=== PATIENT | female | born 1985 | race African-American/Black ===

== ENCOUNTER 2017-03-12 14:25 | Emergency (ER) | payer SELFPAY ==
[~2017-03-12] VITALS: Ht 175.3 cm; Wt 171.0 kg
[~2017-03-12 14:25] MED LIST: CYCL-36 PO; NAPR500 PO
[2017-03-12 14:28] VITALS: BP 167/126; PULSE 76; RESP 16; TEMP 98.3; O2SAT 99
[2017-03-12 14:50] VITALS: BP 135/85
--- NOTE | 2017-03-12 15:15 | PD ---
HPI Chief Complaint: ENT Complaint Time Seen by Provider: 14:50 Travel History International Travel<30 days: No Contact w/Intl Traveler<30days: No Traveled to known affect area: No History of Present Illness HPI 31-year-old female presents emergency department for evaluation of sore throat, nasal congestion, cough for 3 days. Symptoms severity is mild. No aggravating or alleviating factors. She is not tried any home medications. She denies fever or chills. She reports her symptoms are similar to previous cold. She denies headache, visual changes, chest pain, nausea or vomiting. PFSH Past Medical History Medical History: Denies Significant Hx Diminished Hearing: No Influenza Vaccination: No ?: Not LMP: 01/30/17 : 2 Para: 0 Miscarriage: 1 : 0 Past Surgical History Surgical History: No Previous Surgery Social History Alcohol Use: No Tobacco Use: No Substance Use: No Allergies-Medications (Allergen,Severity, Reaction): Coded Allergies: Lortab (Verified Adverse Reaction, Mild, 03/12/17) VOMITING Reported Meds & Prescriptions Reported Meds & Active Scripts Active Naprosyn (Naproxen) 500 Mg Tab 500 Mg PO BID PRN Flexeril (Cyclobenzaprine HCl) 10 Mg Tab 10 Mg PO TID PRN Do not drive on medication. Do not take with alcohol. Review of Systems Except as stated in HPI: all other systems reviewed are Neg Physical Exam Narrative GENERAL: Well-nourished, well-developed patient. SKIN: Focused skin assessment warm/dry. HEAD: Normocephalic. EYES: No scleral icterus. No injection or drainage. NECK: Supple, trachea midline. No JVD or lymphadenopathy. Mild pharyngeal erythema and tonsillar swelling without exudate. Nasal congestion. Clear Rhinitis. Frontal maxillary sinuses nontender. CARDIOVASCULAR: Regular rate and rhythm without murmurs, gallops, or rubs. RESPIRATORY: Breath sounds equal bilaterally. No accessory muscle use. GASTROINTESTINAL: Abdomen soft, non-tender, nondistended. MUSCULOSKELETAL: No cyanosis, or edema. BACK: Nontender without obvious deformity. No CVA tenderness. Data Data Last Documented VS Vital Signs Date Time Temp Pulse Resp B/P Pulse Ox O2 Delivery O2 Flow Rate FiO2 03/12/17 14:50 135/85 03/12/17 14:28 98.3 76 16 99 MDM Medical Decision Making Medical Screen Exam Complete: Yes Emergency Medical Condition: Yes Differential Diagnosis Viral pharyngitis, URI, influenza, strep pharyngitis Narrative Course 31-year-old female since emergency department for evaluation of sore throat, nasal congestion, cough for 3 days. Physical exam are consistent with viral upper respiratory infection. Symptoms are mild. Patient instructed to take Motrin and/or Tylenol as needed for pain and fever. Increase fluids. Rest. Diagnosis Primary Impression: URI (upper respiratory infection) Qualified Code: J06.9 - Viral upper respiratory tract infection Referrals: Primary Care Physician Additional Instructions: Take [id number] Tylenol and/or Motrin as needed for pain and fever. Stay well hydrated by drinking plenty of fluids. Rest. Take [id number] cough and cold medications as needed for symptoms. Disposition: 01 DISCHARGE HOME Condition: Stable Yamel Wynn Mar 12, 2017 15:15
== END 2017-03-12 15:20 | disposition home or self-care (01) ==
LOC: PHEFT 14:25
DX: J06.9 Acute upper respiratory infection, unspecified (principal)
CPT/HCPCS: 99282

== ENCOUNTER → 2017-09-16 | Outpatient (CLI) | payer OTHER ==
[~2017-09-16] MED LIST changes: +ALBU6.7H INH; -CYCL-36 PO; -NAPR500 PO; +ORSYTAB PO
[2017-09-16 13:23] LABS: AUTOMATED NEUTROPHIL # 4.8 TH/MM3 (1.8-7.7); BASOPHIL # 0.1 TH/MM3 (0-0.2); BASOPHIL % 0.7 % (0.0-2.0); EOSINOPHIL # 0.1 TH/MM3 (0-0.4); EOSINOPHIL % 0.6 % (0.0-4.0); HEMO FLAGS DIFF FINAL; LYMPH % 31.8 % (9.0-44.0); LYMPHOCYTE # 2.5 TH/MM3 (1.0-4.8); MEAN CELL VOLUME 82.1 FL (80.0-100.0); MEAN CORPUSCULAR HEMOGLOBIN 26.6 PG (27.0-34.0); MEAN CORPUSCULAR HGB CONC 32.4 % (32.0-36.0); MONO % 6.7 % (0.0-8.0); NEUT % 60.2 % (16.0-70.0); PLATELET COUNT 428 TH/MM3 (150-450); RED BLOOD COUNT 4.14 MIL/MM3 (4.00-5.30); RED CELL DISTRIBUTION WIDTH 14.5 % (11.6-17.2)
[2017-09-16 14:04] LABS: ALT (GPT) 20 U/L (10-53); ANION GAP 9 MEQ/L (5-15); AST (GOT) 9 U/L (15-37); BLOOD UREA NITROGEN 8 MG/DL (7-18); CHLORIDE 108 MEQ/L (98-107); GLOMERULAR FILTRATION RATE 122 ML/MIN (>89); GLUCOSE,FASTING 75 MG/DL (74-99); POTASSIUM 3.9 MEQ/L (3.5-5.1); SODIUM (NA) 140 MEQ/L (136-145)
[2017-09-16 14:13] LABS: ALKALINE PHOSPHATASE 59 U/L (45-117); FREE T3 3.21 PG/ML (2.18-3.98); FREE T4 1.24 NG/DL (0.76-1.46); TOTAL BILIRUBIN ADULT 0.4 MG/DL (0.2-1.0)
== END ==
LOC: PLAB 11:21
PROVIDERS: ATTEND Nurse Practitioner Family
DX: R53.82 Chronic fatigue, unspecified (principal); Z68.43 Body mass index [BMI] 50.0-59.9, adult
CPT/HCPCS: 80053; 84439; 84443; 84481; 85025

== ENCOUNTER 2018-03-06 17:27 | Emergency (ER) | payer OTHER ==
[~2018-03-06] VITALS: Ht 175.3 cm; Wt 163.0 kg
[2018-03-06 17:32] VITALS: BP 122/79; PULSE 69; RESP 18; TEMP 98.5; O2SAT 100
[2018-03-06] MEDS ORDERED: SODIUM CHLORIDE 0.9% FLUSH 10 ML FLUSH IV FLUSH PRN (18:00)
[2018-03-06] MEDS ORDERED: ONDANSETRON ODT 4 MG TAB PO ONE (18:00)
[2018-03-06] MEDS ORDERED: KETOROLAC TROMETHAMINE 30 MG/ML (IVP) VIAL IVP ONE (18:00)
--- NOTE | 2018-03-06 18:01 | PD ---
HPI Chief Complaint: Abdominal Pain Time Seen by Provider: 17:42 Travel History International Travel<30 days: No Contact w/Intl Traveler<30days: No Traveled to known affect area: No History of Present Illness HPI 32-year-old female complains of abdominal pain. Patient states that the pain started about 45 minutes prior to arrival. Patient stated pain is sharp pain localized the right lower quadrant of the abdomen. Patient denies any pain radiation. Patient denies any fever chills. Patient states that she has nausea but no vomiting or diarrhea. Patient denies any dysuria frequency. Patient is on day #2 menstruation period. Patient denies any back pain. Patient has history of ovarian cyst in the past. On a scale of 1-10 the pain is a 7. PFSH Past Medical History Diminished Hearing: No Tetanus Vaccination: < 5 Years Influenza Vaccination: Yes ?: Not LMP: on it now : 2 Para: 0 Miscarriage: 1 : 0 Social History Alcohol Use: Yes (occ) Tobacco Use: No Substance Use: No Allergies-Medications (Allergen,Severity, Reaction): Coded Allergies: acetaminophen (Verified Adverse Reaction, Mild, 09/17/17) VOMITING hydrocodone (Verified Adverse Reaction, Mild, 09/17/17) VOMITING Reported Meds & Prescriptions Reported Meds & Active Scripts Active Proventil Hfa 6.7 GM Inh (Albuterol Sulfate) 90 Mcg/Act Aer 1 Puff INH Q4H PRN Reported Orsythia (Levonorgestrel-Ethinyl Estradiol) 0.1-20 mg-mcg Tab 1 Tab PO DAILY Review of Systems General / Constitutional: No: Fever Eyes: No: Visual changes HENT: No: Headaches Cardiovascular: No: Chest Pain or Discomfort Respiratory: No: Shortness of Breath Gastrointestinal: Positive: Nausea, Abdominal Pain Genitourinary: No: Dysuria Musculoskeletal: No: Pain Skin: No Rash Neurologic: No: Weakness Psychiatric: No: Depression Endocrine: No: Polydipsia Hematologic/Lymphatic: No: Easy Bruising Physical Exam Narrative GENERAL: Well-nourished, well-developed patient. SKIN: Focused skin assessment warm/dry. HEAD: Normocephalic. EYES: No scleral icterus. No injection or drainage. NECK: Supple, trachea midline. No JVD or lymphadenopathy. CARDIOVASCULAR: Regular rate and rhythm without murmurs, gallops, or rubs. RESPIRATORY: Breath sounds equal bilaterally. No accessory muscle use. GASTROINTESTINAL: Abdomen soft, nondistended. Patient has mild to moderate tenderness on palpation right lower quadrant of the abdomen. No rebound tenderness. No mass. MUSCULOSKELETAL: No cyanosis, or edema. BACK: Nontender without obvious deformity. No CVA tenderness. Neurologic exam normal. Data Data Last Documented VS Vital Signs Date Time Temp Pulse Resp B/P (MAP) Pulse Ox O2 Delivery O2 Flow Rate FiO2 03/06/18 17:32 98.5 69 18 122/79 (93) 100 Orders Orders Beta Hcg (Quant/Titer) (03/06/18 17:48) Complete Blood Count With Diff (03/06/18 17:48) Comprehensive Metabolic Panel (03/06/18 17:48) Lipase (03/06/18 17:48) Urinalysis - C+S If Indicated (03/06/18 17:48) Iv Access Insert/Monitor (03/06/18 17:48) Ecg Monitoring (03/06/18 17:48) Oximetry (03/06/18 17:48) Sodium Chlor 0.9% 1000 Ml Inj (Ns 1000 M (03/06/18 17:48) Sodium Chloride 0.9% Flush (Ns Flush) (03/06/18 18:00) Ketorolac Inj (Toradol Inj) (03/06/18 18:00) Ed Urine Pregnancytest Poc (03/06/18 17:48) Ondansetron Odt (Zofran Odt) (03/06/18 18:00) MDM Medical Decision Making Medical Screen Exam Complete: Yes Emergency Medical Condition: Yes Differential Diagnosis Differential diagnosis including UTI, pyelonephritis, nephrolithiasis, ovarian cyst, ovarian torsion, ectopic , appendicitis. Narrative Course 32-year-old female with right lower quadrant abdominal pain. Jhonny Cadet MD Mar 06, 2018 18:01
[2018-03-06] MEDS: SODIUM CHLOR 0.9% 1000 ML INJ 1,000 ML IV SCH ×3 (18:22→20:23)
[2018-03-06 18:24] LABS: BILIRUBIN, URINE NEG (NEG); BLOOD, URINE LARGE (NEG); GLUCOSE,URINE NEG (NEG); KETONE, URINE NEG (NEG); NITRITE,URINE NEG (NEG); PH, URINE 7.5 (5.0-8.5); URINE LEUKOCYTE ESTERASE NEG (NEG)
[2018-03-06 18:24] LABS: AUTOMATED NEUTROPHIL # 8.6 TH/MM3 (1.8-7.7); BASOPHIL # 0.1 TH/MM3 (0-0.2); BASOPHIL % 1.1 % (0.0-2.0); EOSINOPHIL # 0.1 TH/MM3 (0-0.4); EOSINOPHIL % 0.9 % (0.0-4.0); HEMOGLOBIN 10.7 GM/DL (11.6-15.3); LYMPH % 23.3 % (9.0-44.0); LYMPHOCYTE # 2.9 TH/MM3 (1.0-4.8); MEAN CELL VOLUME 73.5 FL (80.0-100.0); MEAN CORPUSCULAR HEMOGLOBIN 23.8 PG (27.0-34.0); MEAN CORPUSCULAR HGB CONC 32.3 % (32.0-36.0); MEAN PLATELET VOLUME 9.5 FL (7.0-11.0); MONO % 5.3 % (0.0-8.0); MONOCYTE # 0.7 TH/MM3 (0-0.9); NEUT % 69.4 % (16.0-70.0); PLATELET COUNT 382 TH/MM3 (150-450); RED CELL DISTRIBUTION WIDTH 16.2 % (11.6-17.2); WHITE BLOOD COUNT 12.4 TH/MM3 (4.0-11.0)
[2018-03-06 18:25] LABS: URINE COLOR PINK (YELLW/STRAW)
[2018-03-06 18:27] LABS: RBC, URINE INNUM /hpf (0-3); SQUAMOUS EPITHELIAL CELL URINE 0-5 /hpf (0-5)
[2018-03-06 19:01] VITALS: O2SAT 98
[2018-03-06 19:03] LABS: CHLORIDE 108 MEQ/L (98-107); SODIUM (NA) 140 MEQ/L (136-145)
[2018-03-06 19:04] VITALS: BP 133/79; PULSE 72; RESP 16; O2SAT 100
[2018-03-06 19:06] LABS: CALCIUM 8.6 MG/DL (8.5-10.1)
[2018-03-06 19:07] LABS: ALBUMIN 3.4 GM/DL (3.4-5.0); BICARBONATE 22.8 MEQ/L (21.0-32.0); BLOOD UREA NITROGEN 10 MG/DL (7-18); GLUCOSE,RANDOM 104 MG/DL (74-106)
[2018-03-06 19:10] LABS: ALT (GPT) 16 U/L (10-53); AST (GOT) 9 U/L (15-37); GLOMERULAR FILTRATION RATE 174 ML/MIN (>89)
[2018-03-06 19:11] LABS: TOTAL BILIRUBIN ADULT 0.1 MG/DL (0.2-1.0); TOTAL PROTEIN 7.1 GM/DL (6.4-8.2)
[2018-03-06 19:13] LABS: ALKALINE PHOSPHATASE 75 U/L (45-117)
[2018-03-06 19:36] LABS: OVALOCYTES 1+ (NORMAL)
--- NOTE | 2018-03-06 20:11 | RADRPT ---
EXAM DATE: 03/06/2018 7:57 PM EDT AGE/SEX: 32 years / Female INDICATIONS: Right lower quadrant pain. CLINICAL DATA: This is the patient's initial encounter. Patient reports that signs and symptoms have been present for 1 day and indicates a pain score of 8/10. MEDICAL/SURGICAL HISTORY: Asthma. None. RADIATION DOSE: 25.02 CTDI (mGy) ; Patient body habitus COMPARISON: No prior exams available for comparison. TECHNIQUE: Multiple contiguous axial images were obtained through the abdomen. Images were obtained using multiple row detector helical technique. Using dose reduction techniques, radiation dose was ke pt as low as reasonably achievable to obtain optimal diagnostic quality images. FINDINGS: Lung bases are clear. No acute findings in the liver, spleen, adrenals, kidneys or pancreas. No calci fied gallstones. There is no free fluid. No bowel obstruction. No adenopathy. The appendix is normal. Small hiatal her tien. Examination of the pelvis reveals a 3.8 cm right ovarian cyst. CONCLUSION: 1. 3.8 cm right ovarian cyst. The appendix is normal. Otherwise no acute findings. Electronically signed by: Feroz Vazquez MD 03/06/2018 8:09 PM EDT
--- NOTE | 2018-03-06 20:22 | PD ---
Physical Exam Narrative Patient signed out to me by Dr. Cadet. please see his documentation for complete details. Briefly, patient is a 32 year old female who comes in complaining of RLQ abdominal pain. She says it started just prior to coming in. Exam shows mild tenderness to palpation of the RLQ. Data Data Last Documented VS Vital Signs Date Time Temp Pulse Resp B/P (MAP) Pulse Ox O2 Delivery O2 Flow Rate FiO2 03/06/18 19:04 72 16 133/79 (97) 100 Room Air 03/06/18 17:32 98.5 Orders Orders Beta Hcg (Quant/Titer) (03/06/18 17:48) Complete Blood Count With Diff (03/06/18 17:48) Comprehensive Metabolic Panel (03/06/18 17:48) Lipase (03/06/18 17:48) Urinalysis - C+S If Indicated (03/06/18 17:48) Iv Access Insert/Monitor (03/06/18 17:48) Ecg Monitoring (03/06/18 17:48) Oximetry (03/06/18 17:48) Sodium Chlor 0.9% 1000 Ml Inj (Ns 1000 M (03/06/18 17:48) Sodium Chloride 0.9% Flush (Ns Flush) (03/06/18 18:00) Ketorolac Inj (Toradol Inj) (03/06/18 18:00) Ed Urine Pregnancytest Poc (03/06/18 17:48) Ondansetron Odt (Zofran Odt) (03/06/18 18:00) Urine Culture (03/06/18 18:00) Ct Abd/Pel W/O Iv Contrast (03/06/18 ) Labs Laboratory Tests Test 03/06/18 18:00 03/06/18 18:08 03/06/18 18:45 Urine Collection Type CLEAN CATCH Urine Color PINK Urine Turbidity CLOUDY Urine pH 7.5 Urine Specific [place] 1.015 Urine Protein 30 mg/dL Urine Glucose (UA) NEG mg/dL Urine Ketones NEG mg/dL Urine Occult Blood LARGE Urine Nitrite NEG Urine Bilirubin NEG Urine Urobilinogen 0.2 MG/DL Urine Leukocyte Esterase NEG Urine RBC INNUM /hpf Urine WBC 20-24 /hpf Urine Squamous Epithelial Cells 0-5 /hpf Microscopic Urinalysis Comment CULTURE INDICATED White Blood Count 12.4 TH/MM3 Red Blood Count 4.50 MIL/MM3 Hemoglobin 10.7 GM/DL Hematocrit 33.0 % Mean Corpuscular Volume 73.5 FL Mean Corpuscular Hemoglobin 23.8 PG Mean Corpuscular Hemoglobin Concent 32.3 % Red Cell Distribution Width 16.2 % Platelet Count 382 TH/MM3 Mean Platelet Volume 9.5 FL Neutrophils (%) (Auto) 69.4 % Lymphocytes (%) (Auto) 23.3 % Monocytes (%) (Auto) 5.3 % Eosinophils (%) (Auto) 0.9 % Basophils (%) (Auto) 1.1 % Neutrophils # (Auto) 8.6 TH/MM3 Lymphocytes # (Auto) 2.9 TH/MM3 Monocytes # (Auto) 0.7 TH/MM3 Eosinophils # (Auto) 0.1 TH/MM3 Basophils # (Auto) 0.1 TH/MM3 CBC Comment AUTO DIFF Differential Comment AUTO DIFF CONFIRMED Ovalocytes 1+ Blood Urea Nitrogen 10 MG/DL Creatinine 0.50 MG/DL Random Glucose 104 MG/DL Total Protein 7.1 GM/DL Albumin 3.4 GM/DL Calcium Level 8.6 MG/DL Alkaline Phosphatase 75 U/L Aspartate Amino Transf (AST/SGOT) 9 U/L Alanine Aminotransferase (ALT/SGPT) 16 U/L Total Bilirubin 0.1 MG/DL Sodium Level 140 MEQ/L Potassium Level 3.8 MEQ/L Chloride Level 108 MEQ/L Carbon Dioxide Level 22.8 MEQ/L Anion Gap 9 MEQ/L Estimat Glomerular Filtration Rate 174 ML/MIN Lipase 87 U/L Human Chorionic Gonadotropin, Quant LESS THAN 1 MIU/ML MDM Supervised Visit with JE: No Narrative Course Labs show a WBC count of 12.4, Hgb of 10.7. Hgb is similar to previous and patient is on her menstrual cycle. She was given Toradol with improvement of her pain. CT abd/pelvis shows a right ovarian cyst. Last 24 hours Impressions Abdomen/Pelvis CT 03/06/18 0000 Signed Impressions: CONCLUSION: 1. 3.8 cm right ovarian cyst. The appendix is normal. Otherwise no acute findi ngs. She is informed of the results. Advised to follow up with her pan shover. Advised to take Ibuprofen or Naproxen at home. Advised to return to the ED as needed for any worsening symptoms. Diagnosis Primary Impression: Ovarian cyst Qualified Codes: N83.201 - Unspecified ovarian cyst, right side Patient Instructions: General Instructions, Ovarian Cyst (ED) Additional Instruction: Follow up with your pan shover. Take Ibuprofen or Naproxen as needed for pain. Return to the ED as needed for any worsening symptoms. Disposition: 01 DISCHARGE HOME Condition: Stable Amanda Salcedo MD Mar 06, 2018 20:22
[2018-03-06 20:28] VITALS: BP 140/72
== END 2018-03-06 20:35 | disposition home or self-care (01) ==
LOC: PHED 17:27
DX: N83.201 Unspecified ovarian cyst, right side (principal); R11.0 Nausea
CPT/HCPCS: 74176; 80053; 81001; 83690; 84702; 84703; 85025; 87086; 99284; J1885; J7030